=== PATIENT | male | born 1950 | race Caucasian/White ===

== ENCOUNTER 2024-01-25 08:30 | Outpatient (RCR) | payer MEDICARE, SELFPAY ==
--- NOTE | 2023-12-14 16:12 | HP.OTEVAL ---
Patient's Visit Information Visit Information Visit Information: KOURTNEY ANDERSON is a 73 year old M, referred to Occupational Therapy by Dr. Gordon Florian DO, with a diagnosis of EPL tendon rupture. Date of Evaluation: 12/13/23 Occupational Therapist: NEIL Torres/Charmaine, CHT Subjective Subjective: This 73 year old male was seen for OT eval with dx of left EPL rupture. Pt states DOI was August 15. pt states he had a fall August suffering a left wrist/hand injury while playing pickle ball . Pt states he could not lift his thumb. pt states he could pinch but could could not lift the tip of his thumb. Went to see Dr. Florian in 09/18/23. pt states he underwent sx on Nov.14. pt underwent extend tendon transfer APL to EPL left. pt arrives today in need of custom orthosis to provide support and protection while structures continue to heal. Pain thumb pain: Current Pain Intensity: 3 Pain Intensity Range: 0 and 3 ROM Wrist: right WNL left 30/45 CMC: right 15 left 0 MP: right 40 left 20 IP: right +10/40 left +5/10 ROM Comments: pt demo with newly healing structures limiting pts motion at this time Strength Strength Comments: will test later date Sensation Sensation Comments: some radial nerve sensitivity Quick DASH-Disab of Arm,Shoulder& Hand Quick DASH Score: 56.5775 Goals Goal:Daily scar massage when approriate: Yes Goal:ROM equal to unaffected hand: Yes Goal:Oil Fire Specialist/Pinch strength at least 75% of unaffected hand: Yes Goal:No pain with affected hand use: Yes Goal:Full use of affected hand in daily activities including work: Yes Goal:Decrease scar hypersensitivity: Yes Other Goal: orthosis use: pt will demo understanding of using protective orthosis by end of 1st session. Rehabilitation General Assessment: pt arrives 4 weeks s/p from a left abductor pollicis longus to extensor pollicis longus transfer. pt had cast removed and demo further need of custom orthosis to allow for healing of structures involved in the tendon transfer. Pt is limited with use of left hand with all ADLs and IADLs at this time. Pt would benefit form skilled OT services 1-2x week for 8 weeks to assist pt in recover and return pt to a PLOF. Today therapist cindy. custom orthosis and ed. pt on wrist ( short arch wrist ROM ) and thumb flexion/ext with wrist in slight ext. pt demo understanding and agree to POC. Rehabilitation Potential: Good Anticipated Interventions Anticipated Interventions: A/AAROM/PROM, Scar Care, Triggerpoint Release, Desensitization, Sensory Retraining, Modalities, Orthoses, Joint Protection/Energy Conservation, Ergonomic Education, Education re assistive Equipment, Education re Diagnosis and Home Program Visit Plan Frequency: 1-2x /Week Duration: 2 Months TEXT: Thank you for the opportunity to evaluate your patient. For Medicare and Medicare HMO plans, please review the plan of care and approve it. It will need to be FAXED BACK to us at [phone] for Medicare purposes. Please let me know if there are questions or concerns regarding this plan of care. Physician Signature: Date:
--- NOTE | 2024-01-16 08:27 | OTREVAL_ITS ---
Re-Evaluation Intro: Dr. Gordon Florian, DO, It has been my pleasure to treat KOURTNEY ANDERSON over the last 7 visits for EPL tendon rupture. Please see the progress note below for an update on the occupational therapy plan of care! Subjective Subjective: pt arrives to session 8 weeks and 6 days s/p from extensor tendon transfer- DOS 11/15/23 pt is out of splint during the day- sleeping in it pt does have some residual numb areas around incision ( advised pt this is normal) Objective Objective/Function: pt continues to demo composite fist with wrist flexion- ( therapist has ed. pt to allow fingers to stay relaxed while he is moving his wrist into flexion) left wrist wrist 55/30* ( pt gets pulling at wrist) left thumb IP flexion 20* IP Hyper ext of 20* thumb RA 40* thumb opposition to tip of LF left customer service advocate strength 40# left lateral pinch 6# pt states he has had his splint off depending on what he is doing- pt states splint is off when he is watching TV, eating and off when driving- pt states he keeps it on when he is doing anything else. therapy has initiated light full customer service advocate and pinch to strengthen and light shoulder and biceps strengthening using 3#. pt for full release of activity at week 12 - unless otherwise specified by Dr. Florian. Plan Plan Frequency: Every Other Week Duration: 2 Weeks Plan: return to for re-check pt is transitioning well Goals Goals Patient Goals: Regain Mobility and Use Hand/Wrist/Arm Normally Again Goal:Daily scar massage when approriate: Yes Goal:ROM equal to unaffected hand: Yes Goal:Salesperson Men'S Hats/Pinch strength at least 75% of unaffected hand: Yes Goal:No pain with affected hand use: Yes Goal:Full use of affected hand in daily activities including work: Yes Goal:Decrease scar hypersensitivity: Yes Other Goal: orthosis use: pt will demo understanding of using protective orthosis by end of 1st session. Anticipated Interventions Anticipated Interventions Anticipated Interventions: A/AAROM/PROM, Scar Care, Triggerpoint Release, Desensitization, Sensory Retraining, Modalities, Orthoses, Joint Protection/Energy Conservation, Ergonomic Education, Education re assistive Equipment, Education re Diagnosis and Home Program Re-Evaluation Ending Re-evaluation ending: Please do not hesitate to contact me at [phone] by phone or if you have questions or concerns regarding this new plan of care! Sincerely, Terra Bertrand OTR/L, CHT
--- NOTE | 2024-01-25 08:54 | HP.OTDCSUM ---
Discharge Summary D/C Summary: It has been my pleasure to treat KOURTNEY ANDERSON under orders from Dr. Gordon Florian DO, for the diagnosis of EPL tendon rupture for a total of 8 visit(s). Please see the following information for a summary of their discharge status. Overall Improvement % Improvement: 90 Objective Objective/Function: pt continues to demo composite fist with wrist flexion- ( therapist has ed. pt to allow fingers to stay relaxed while he is moving his wrist into flexion) left wrist wrist 55/30* ( pt gets pulling at wrist) left thumb IP flexion 20* IP Hyper ext of 20* thumb RA 40* thumb opposition to tip of LF left police commissioner strength 70# left lateral pinch 18# pt states he has had his splint off depending on what he is doing- pt states splint is off when he is watching TV, eating and off when driving- pt states he keeps it on when he is doing anything else. therapy has initiated light full police commissioner and pinch to strengthen and light shoulder and biceps strengthening using 3#. pt for full release of activity at week 12 - Goals Patient Goals: Regain Mobility and Use Hand/Wrist/Arm Normally Again Goal:Daily scar massage when approriate: Yes Goal Progress: Goal Met Goal:ROM equal to unaffected hand: Yes Goal Progress: Goal Met Goal:Office Machine Technician/Pinch strength at least 75% of unaffected hand: Yes Goal:No pain with affected hand use: Yes Goal Progress: Goal Met Goal:Full use of affected hand in daily activities including work: Yes Goal Progress: Goal Met Goal:Decrease scar hypersensitivity: Yes Goal Progress: Goal Met Other Goal: orthosis use: pt will demo understanding of using protective orthosis by end of 1st session. Plan Plan: d/c D/C Information Discharge Comments: pt was seen 8 OT sessions following tendon transfer of left EPL - pt has done well- he does have residual soreness (therapist ed.pt this will last about 9 months) pt demo understanding- pt use heat to decrease soreness- pt does demo with tendon rolling over cmc region with wrist in slight flexion- with placing wrist in slight ext this does go away- pt ed. on position to avoid tendon rolling/snapping. pt to return to normal use of hand as treovr. pt has met all goal. d/c sentence: If there are questions or concerns regarding this patient's occupational therapy, please fell free to call me at [phone]. Thank you for the referral of this patient. Sincerely, Terra Bertrand, OTR/L, CHT
== END 2024-01-25 19:00 | disposition home or self-care (01) ==
LOC: OT 08:30
PROVIDERS: PCP Family Medicine; Referring Provider Student in an Organized Health Care Education/Training Program; Visit Provider Student in an Organized Health Care Education/Training Program
DX: S66.212D Strain of extensor muscle, fascia and tendon of left thumb at wrist and hand level, subsequent encounter (principal)
CPT/HCPCS: 97035; 97110; 97140; 97166; 97530; 97760